=== PATIENT | female | born 1950 | race Caucasian/White ===

== ENCOUNTER 2019-11-01 06:40 | Observation (INO) | payer OTHER, SELFPAY ==
[2019-11-01] VITALS (11 sets, daily range): BP systolic 150–192; BP diastolic 82–117; PULSE 68–88; RESP 12–16; TEMP 34.4–36.6; O2SAT 96–100; BMI 51.3
--- NOTE | ~2019-11-01 | MR_ITS ---
EXAMINATION: MRA brain wo con DATE: 11/04/2019 09:04 INDICATION: Left-sided hearing loss. Dizziness. TECHNIQUE: Magnetic resonance angiography (MRA) of the brain was performed without intravenous contra st with T1-weighted SPGR by the 3D [id number] technique. Maximum intensity projection 3D-reconstr uctions were obtained. COMPARISON: Head CT 11/02/2019 FINDINGS: Motion artifact is noted. Right vertebral artery is dominant. There is no significant stenosis of bas ilar artery or the posterior cerebral arteries. There is no significant stenosis of the intracranial internal carotid arteries or anterior or middle cerebral arteries. Anterior communicating artery is n ormal. The posterior communicating arteries are normal. There is no aneurysm. IMPRESSION: 1. No aneurysm or significant intracranial arterial stenosis. Reviewed, dictated and finalized at location A.
--- NOTE | ~2019-11-01 | CT_ITS ---
EXAMINATION: CT abdomen pelvis w con DATE: 11/01/2019 09:28 INDICATION: Nausea and vomiting. Back pain for 3 days. Shortness of breath. TECHNIQUE: Computed tomography (CT) of the abdomen and pelvis was performed with 100 cc Omnipaque 350 intravenous contrast. Automated exposure control and iterative reconstruction technique were employe d. Exam dose: 1704.81 mGy-cm total exam DLP. COMPARISON: None. FINDINGS: There is minimal dependent right lower lobe atelectasis. The included lower lung zones are otherwise clear. Cardiomegaly. No pericardial or pleural effusion. Small sliding hiatal hernia. Status post cholecystectomy. The liver, spleen, pancreas, and adrenal glands are unremarkable. Bilate ral renal scarring, right greater than left, consistent with chronic pyelonephritis. There are occasi onal focal areas of diminished enhancement of the kidneys which may be due to scarring, infarction or acute pyelonephritis. There is no perinephric stranding or fluid. Clinical correlation is advised wi th urinalysis. No urinary tract calculus or hydroureteronephrosis. There is abdominal aortic calcification but no aneurysm. No intraperitoneal or retroperitoneal or pel marichuy mass lesion or adenopathy or ascites is detected. The urinary bladder is unremarkable. Status post hysterectomy. Minimal colonic diverticulosis; no CT evidence of diverticulitis. No bowel obstruction or intraperito mary jane free air. There is depression of the superior vertebral endplate of L3 and to a lesser extent L4 consistent wit h compression fractures of uncertain age. There is degenerative disc disease throughout the lumbar sp ine and degenerative spurring of the thoracic spine. No suspicious osteolytic or osteoblastic lesions are noted. There is degenerative change at the apophyseal joints with slight associated grade 1 ante rolisthesis at L4-5. IMPRESSION: Cardiomegaly Small sliding hiatal hernia Status post cholecystectomy Status post hysterectomy Bilateral chronic pyelonephritis; recommend clinical correlation/urinalysis to exclude superimposed a cute pyelonephritis Minimal colonic diverticulosis Compression fracture deformities of L3 and L4 Reviewed, dictated and finalized at Location A. Reviewed, dictated and finalized at location A. IMPRESSION: Cardiomegaly Small sliding hiatal hernia Status post cholecystectomy Status post hysterectomy Bilateral chronic pyelonephritis; recommend clinical correlation/urinalysis to exclude superimposed acute pyelonephritis Minimal colonic diverticulosis Compression fracture deformities of L3 and L4
--- NOTE | ~2019-11-01 | XR_ITS ---
EXAMINATION: XR chest 2V DATE: 11/03/2019 14:23 INDICATION: Shortness of breath TECHNIQUE: AP and lateral views of the chest are obtained. COMPARISON: 04/27/2017 FINDINGS: There are minimal airspace opacities of the right middle lobe. There is no pleural effusion or pneumothorax. The cardiomediastinal silhouette is normal for technique. There is mild thoracic sp ondylosis. Moderate osteoarthritis is noted in the shoulders. IMPRESSION: 1. Right middle lobe airspace opacity, likely pneumonia. Reviewed, dictated and finalized at location A.
--- NOTE | ~2019-11-01 | MR_ITS ---
EXAMINATION: MR brain/brain stem wo/w con DATE: 11/04/2019 09:04 INDICATION: Left-sided hearing loss. Dizziness. TECHNIQUE: Magnetic resonance imaging (MRI) of the brain and brainstem was performed without and with 20 mL MultiHance intravenous contrast. Sequences included sagittal and axial T1-weighted FSE, axial diffusion-weighted FS EPI, axial T1-weighted SPGR, axial T2*-weighted GRE, axial T2-weighted FLAIR Pr opeller, and axial T2-weighted Propeller. Postcontrast sequences included axial and coronal T1-weight ed FSE. Apparent diffusion coefficient (ADC) maps were created. COMPARISON: Head CT 11/02/2019 FINDINGS: There are scattered areas of nonspecific increased T2-weighted signal intensity in the cere bral white matter, which is within normal limits for the patient's age. There is no intracranial hemo rrhage, acute infarction, or abnormal intracranial mass lesion. The ventricles are normal in size. Th e mastoid air cells are normal. The paranasal sinuses are clear. There are likely changes of ocular l ens replacement surgeries. IMPRESSION: 1. Normal aging brain. Reviewed, dictated and finalized at location A. IMPRESSION: 1. Normal aging brain.
--- NOTE | ~2019-11-01 | CT_ITS ---
EXAMINATION: CT brain wo con EXAM DATE: 11/02/2019 17:13 INDICATION: Dizziness. TECHNIQUE: Spiral CT of the head was performed without contrast. Axial, coronal and sagittal images were reviewed. The dose-length product (DLP) for this examination was 605.33 mGy-cm. The exposure w as tailored according to patient size, and iterative reconstruction (ASIR) was used as additional dos e reduction technique. Comparison is made to prior examination from 10/09/2003. FINDINGS: There is no acute intraparenchymal hemorrhage. No evidence of intraparenchymal brain mass lesion. No evidence of acute infarction. There is no mass effect or midline shift. The ventricles are normal in size. There are no extra-axial collections. There are no acute calvarial fractures. P albert has had bilateral ocular lens surgery. Hyperostosis frontalis. Soft tissue is unremarkable. T he visualized sinuses and mastoid air cells are well aerated. IMPRESSION: 1. No acute intracranial findings. Reviewed, dictated and finalized at location A.
--- NOTE | ~2019-11-01 | XR_ITS ---
XR lumbar spine 2-3V DATE: 11/01/2019 09:38 INDICATION: Low back pain TECHNIQUE: AP, lateral, coned lateral lumbosacral views COMPARISON: 09/03/2018 CT abdomen 11/11/2019 CT abdomen pelvis 02/19/2018 lumbar spine FINDINGS: There is contrast material within the collecting systems of both kidneys and ureters, with moderate distention blunting of the calyces, but no apparent urinary tract obstruction. Normal alignment of the lumbar spine. Degenerative spurring of the included lower thoracic and lumbar spine, with multilevel degenerative disc disease, relatively sparing only L5-S1. No fracture or bone destruction is evident. The included lower thoracic and lumbar pedicles appear in tact. The sacroiliac joints are normal. IMPRESSION: Multilevel degenerative disc disease of the lumbar spine Reviewed, dictated and finalized at location A.
--- NOTE | 2019-11-01 07:03 | ED.ABDPAIN ---
HPI - Abdominal Pain General Chief Complaint: Abdominal Pain Stated Complaint: sob/vomiting Time Seen by Provider: 11/01/19 07:02 History of Present Illness HPI narrative: Patient presents via EMS with her daughter for vomiting nausea and shortness of breath. This started 2 days ago, and has been getting worse. She has a history of congestive heart failure COPD, and pneumonia. She was recently hospitalized at [facility]. She says she has pain only when she vomits, but her daughter said that she has had low back pain for 3 days. The PCP called in Flexeril and tramadol for the low back pain, which is not helping. The patient said her medications are in her purse, as we await the med list. Surgeries she has had gallbladder and hysterectomy. She has a history of A. fib with cardiac ablation. Onset (ago): day(s) Pain Consistency: intermittent Severity: mild Exacerbating factors: vomiting Related Data Patient : No Home Medications Medication Instructions Recorded Confirmed amiodarone 200 mg PO DAILY 11/01/19 apixaban [Eliquis] 5 mg PO BID 11/01/19 duloxetine 60 mg PO DAILY 11/01/19 furosemide 40 mg PO DAILY 11/01/19 gabapentin 600 mg PO QID 11/01/19 lisinopril 20 mg PO DAILY 11/01/19 metoprolol succinate 25 mg PO DAILY 11/01/19 omeprazole 40 mg PO DAILY 11/01/19 potassium chloride 20 meq PO DAILY 11/01/19 Allergies Allergy/AdvReac Type Severity Reaction Status Date / Time No Known Allergies Allergy Verified 11/01/19 07:32 Review of Systems Review of Systems: Narrative: CONSTITUTIONAL: Denies fever, she has had chills and sweats. EYES: Denies visual changes, redness, or discharge. ENT: Denies rhinorrhea, congestion, sore throat, or otalgia. CARDIOVASCULAR: Denies chest pain, palpitations, or edema. RESPIRATORY: Denies cough , She has chronic shortness of breath due to COPD GASTROINTESTINAL: She has nausea and vomiting GENITOURINARY: Denies dysuria or hematuria. SKIN: Denies rash or itching. MUSCULOSKELETAL: Denies joint pain, or myalgia. NEUROLOGIC: Denies headache, numbness, or weakness. PSYCHIATRIC: Denies anxiety or depression. All systems reviewed & are unremarkable except as noted in HPI and below PMFSH Past Medical History Medical History (Updated 11/01/19 @ 10:38 by Pat Iqbal MD) A-fib CHF (congestive heart failure) Surgical History Surgical History (Updated 11/01/19 @ 07:20 by Pat Iqbal MD) History of cholecystectomy History of hysterectomy Social History Social History (Updated 11/01/19 @ 07:21 by Pat Iqbal MD) Smoking status: Former smoker Alcohol intake: never Substance use: never Exam Narrative: Exam Narrative: GENERAL: Morbid obesity, active vomiting, flushed HEAD: Normocephalic, atraumatic.Double chin. EYES: PERRLA and EOMI. ENT: Nares clear, no rhinorrhea or epistaxis. Mucous membranes moist. NECK: Supple. CHEST: Clear to auscultation. No respiratory distress. HEART: Regular rate and rhythm. No murmur heard. Normal peripheral pulses. ABDOMEN: Soft, nontender, nondistended, normal active bowel sounds. EXTREMITIES: Normal range of motion. Peripheral edema. SKIN: Warm, dry, no rash. NEURO: No focal deficits. Alert and oriented x3. PSYCH: Keeps her eyes closed and speaks in single words. Const: General: ill appearing Nutritional Appearance: obese Course Reevaluation(s) Reevaluation #1: MDM the patient is still nauseated, and she has had Ultram before without this nausea and vomiting. I will add an another antiemetic. Date: 11/01/19 Time: 07:59 Reevaluation #2: Went in to give the results to the patient and her daughter. The daughter is a nurse who used to work here. I explained about the antibiotics for possible kidney infection. The 2 compression fractures, and the cardiomegaly. Do not have a good explanation for the vomiting. Could be the Ultram, or kidney infection. Will admit for overnight observation and pain management. Date:
--- NOTE | 2019-11-01 07:06 | ECG_ITS ---
Measurements Intervals [place] Rate: 73 P: 52 PA: 179 QRS: 17 QRSD: 97 T: 56 QT: 463 QTc: 510 Interpretive Statements SINUS RHYTHM PROLONGED QT INTERVAL ABNORMAL ECG Electronically Signed On 11-01-2019 8:46:36 CDT by Martin Lechuga D.O.
[2019-11-01] MEDS: ONDANSETRON INJ 4 MG/2 ML VIAL IV PUSH ×3 (07:25→21:52)
[2019-11-01] MEDS: FAMOTIDINE 20 MG/2 ML VIAL IV PUSH ×2 (07:27→21:52)
[2019-11-01] MEDS: FUROSEMIDE INJ 40 MG/4 ML VIAL IV PUSH (07:29)
[2019-11-01 07:30] LABS: Basophils Absolute Auto 0.1 K/mm3 (0.0-0.1); Basophils Percent Auto 0.7 % (0.2-1.2); Eosinophils Absolute Auto 0.3 K/mm3 (0-0.3); Eosinophils Percent Auto 2.2 % (0-4.4); Hematocrit 46.4 % (37.0-47.0); Hemoglobin 14.6 g/dL (12.0-15.0); Immature Granulocyte Absolute 0.05 K/mm3 (0.00-0.031); Immature Granulocyte Percent A 0.4 % (0-0.5); Lymphocytes Absolute Auto 1.94 K/mm3 (0.9-3.2); Lymphocytes Percent Auto 16.6 % (18.3-44.2); Mean Corpuscular HGB Conc 31.5 g/dl (32-36); Mean Corpuscular Hemoglobin 27.7 pg (26-34); Mean Corpuscular Volume 87.9 fl (80-100); Mean Platelet Volume 10.7 fl (7.4-10.4); Monocytes Absolute Auto 0.7 K/mm3 (0.1-0.6); Monocytes Percent Auto 5.9 % (2.6-8.5); Neutrophils Absolute Auto 8.6 K/mm3 (1.3-6.7); Neutrophils Percent Auto 74.2 % (45.5-73.1); Platelet Count Result 258 k/mm3 (150-375); Red Blood Count 5.28 M/mm3 (4.2-5.4); White Blood Count 11.7 K/mm3 (4.5-10.0)
[2019-11-01 07:42] LABS: Alanine Aminotransferase 15 U/L (4-35); Albumin Level 4.3 g/dL (3.5-5.1); Alkaline Phosphatase 158 U/L (38-126); Aspartate Amino Transferase 22 U/L (14-36); Blood Urea Nitrogen 17 mg/dL (7-17); Calcium 9.2 mg/dL (8.4-10.2); Carbon Dioxide 30 mmol/L (22-30); Chloride 101 mmol/L (98-107); Estimated CRCL calculation 89 ml/min; Estimated Glomerular Filt Rate > 60; Glucose 185 mg/dL (65-105); INR 1.2; Lipase 35 U/L (23-300); Potassium 3.7 mmol/L (3.4-5.0); Prothrombin Time 14.6 Seconds (11.1-14.7); Sodium 138 mmol/L (137-145)
[2019-11-01 07:43] LABS: Partial Thromboplastin Time 28.1 SECONDS (22.3-36.8)
[2019-11-01 07:53] LABS: Troponin I < 0.012 ng/mL (0.000-0.034)
[2019-11-01 07:56] LABS: NT Pro B Type Natriuretic Pept 282 PG/ML (5-100)
[2019-11-01 07:57] LABS: Alveolar/Arterial O2 Gradient 63.6 mmHg; Base Excess ABG 3.3 mEq/l (+/-2.0); Fractional Inspired Oxygen 36 %; HCO3 ABG 29.1 mEq/l (22.0-26.0); Oxygen Saturation ABG 98.7 % (95.0-100.0); Oxyhemoglobin 96.8 % THb (90.0-100.0); PCO2 ABG 48.8 mmHg (35.0-45.0); PO2 ABG 136.5 mmHg (80.0-100.0); PO2 FiO2 Ratio Arterial Blood 3.79 %; Total Hemoglobin 15.3 g/dL (12.0-18.0); pH ABG 7.394 (7.350-7.450)
[2019-11-01 07:59] LABS: Device NASAL CANNULA; Modified Allen's Test Pass; Site Drawn LEFT RADIAL
[2019-11-01] MEDS: METOCLOPRAMIDE HCL INJ 10 MG/2 ML VIAL IV PUSH (08:00)
[2019-11-01 08:30] LABS: Add Urine Microscopic? YES; Appearance Urine Clear (Clear); Bilirubin Urine Negative (Negative); Blood Urine Negative (Negative); Color Urine Colorless (Yellow); Glucose Urine UA 1+ mg/dL (Negative); Ketones Urine Negative (Negative); Leukocyte Esterase Ur Negative LEU/UL (Negative); Nitrate Urine Negative (Negative); Protein Urine 2+ mg/dL (Negative); RBC Urine 0-2 /hpf (0-2); Specific Grav Ur 1.009 (1.001-1.035); Squamous Epithelial Cell Urine Rare /hpf (Few); Urobilinogen Urine Negative mg/dL (<2.0); WBC Urine 0-3 /hpf
[2019-11-01] MEDS: METOPROLOL TARTRATE INJ 5 MG/5 ML VIAL IV PUSH (10:52)
--- NOTE | 2019-11-01 11:30 | ADMGEN ---
This patient, Carolee Guajardo, was admitted to Medical Room 349-01. Patient/family oriented to hospital policies and general routines including ID bracelet, bed and alarms, visiting hours, pain management, procedures, bathroom and other care routines, personal items, smoking policy, room service/diet, and visiting hours. Valuables list has been completed. Information on how to activate the Rapid Response Team has been discussed. Patient/Family are encouraged to report perceived risks to care and to ask questions if they do not understand what they are told or what they should do.
[2019-11-01] MEDS: hydrALAZINE HCL 20 MG/ML VIAL 10 MG IV PUSH (14:27)
[2019-11-01] MEDS: PROCHLORPERAZINE EDISYLATE 10 MG/2 ML VIAL IV PUSH (14:41)
[2019-11-01] MEDS: LORAZEPAM INJ 2 MG/ML VIAL 0.5 MG IV PUSH (14:42)
--- NOTE | 2019-11-01 15:36 | PM.IMHP ---
H&P: HPI History of Present Illness Chief complaint: Hypertensive crisis,uti,lumbar compression fractur Narrative: Carolee Guajardo is a 69 year old female The patient has a history of having congestive heart failure. And she also has a history of atrial fibrillation of which she had at least 3 ablation for. She had been out of atrial fibrillation for a long time back in July she would back into it and is now sinus rhythm today. 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 The patient was hospitalized back in July at [facility] for atrial fibrillation. The patient is currently in sinus rhythm. Patient has been having nausea and vomiting for at least 3 days she has also been short of breath. The last 2 days have been getting worse for her. The patient has been complaining of some back pain for at least 3 days and call the primary care doctor. She was prescribed Flexeril and Tylenol her lower back pain but it was not helping. Her blood pressure is 166/117 today. Patient was given Pepcid, Lasix, Reglan, Zofran, metoprolol, and Rocephin for pyelonephritis. date of service 11/01/2019 Review of Systems Review of Systems: ROS unobtainable: Yes unobtainable due to mental status Constitutional: Constitutional: Reports as per HPI and Reports no additional constitutional complaints Eyes: Eyes: Reports as per HPI and Reports no additional eye complaints ENT: Reports system reviewed and no additional complaints, except as documented and Reports Normal hearing present Cardiovascular: Cardiovascular: Reports no additional cardiovascular complaints Respiratory: Respiratory: Reports no additional respiratory complaints and Reports no additional respiratory complaints Gastrointestinal: Gastrointestinal: Reports as per HPI and Reports no additional gastrointestinal complaints Musculoskeletal: Musculoskeletal: Reports no additional musculoskeletal complaints Integumentary/Breasts: Skin/Breast: Reports system reviewed and no additional complaints, except as docu and Reports as per HPI Neurologic: Reports system reviewed and no additional complaints, except as documented, Reports as per HPI and Reports Normal hearing present Psychiatric: Psychiatric: Reports no additional psychiatric complaints and Reports as per HPI Endocrine: Endocrine: Reports no additional endocrine complaints Hematologic/Lymphatic: Hematologic/Lymphatic: Reports no additional hematologic/lymphatic complaints Allergic/Immunologic: Allergic/Immunologic: Reports no additional allergic/immunologic complaints PMFSH Past Medical History Medical History (Updated 11/01/19 @ 16:10 by Amy Carranza NP) A-fib paroxysmal CHF (congestive heart failure) DVT (deep venous thrombosis) Factor V Leiden Hypertension Surgical History Surgical History (Updated 11/01/19 @ 16:10 by Amy Carranza NP) H/O cardiac radiofrequency ablation H/O cataract extraction bilaterally History of appendectomy History of arthroplasty of right knee x3 History of cholecystectomy History of hysterectomy Family History Family History (Updated 11/01/19 @ 12:52 by Lucero Valdez RN) Mother Cerebrovascular accident Hypertension Father Acute myocardial infarction Chronic obstructive pulmonary disease Congestive heart failure Hypertension Social History Social History (Updated 11/01/19 @ 16:14 by Amy Carranza NP) Social History: patient is a former smoker. She smoked 2 packs of cigarettes a day for approximately 33 years. She quit smoking 16 years ago. She used to be a daily drinker and admits to drinking excessively by quit 1980s. No illicit drugs. 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 She has been 4 times and she lost her 1st and 3rd . She is for approximately 39 years now. She is a full code. She has 3 biological children and 2 stepchildren. Her daughter is a
[2019-11-01] MEDS: GABAPENTIN 300 MG CAPSULE 600 MG PO ×2 (17:33→21:52)
[2019-11-01] MEDS: APIXABAN 5 MG TABLET PO (17:33)
[2019-11-01] MEDS: TOLNAFTATE 1% POWDER 45 GM BTL 1 APPLIC TOPICAL (21:53)
[2019-11-02] VITALS (13 sets, daily range): BP systolic 125–138; BP diastolic 65–85; PULSE 72–93; RESP 16–18; TEMP 36.3–36.4; O2SAT 92–99
[2019-11-02] MEDS: ONDANSETRON INJ 4 MG/2 ML VIAL IV PUSH ×2 (02:00→06:20)
[2019-11-02 05:24] LABS: Basophils Percent Auto 0.2 % (0.2-1.2); Eosinophils Percent Auto 0.1 % (0-4.4); Hematocrit 46.3 % (37.0-47.0); Hemoglobin 14.4 g/dL (12.0-15.0); Immature Granulocyte Absolute 0.08 K/mm3 (0.00-0.031); Immature Granulocyte Percent A 0.5 % (0-0.5); Lymphocytes Absolute Auto 1.03 K/mm3 (0.9-3.2); Lymphocytes Percent Auto 6.4 % (18.3-44.2); Mean Corpuscular HGB Conc 31.1 g/dl (32-36); Mean Corpuscular Hemoglobin 27.9 pg (26-34); Mean Corpuscular Volume 89.6 fl (80-100); Mean Platelet Volume 11.3 fl (7.4-10.4); Monocytes Percent Auto 6.1 % (2.6-8.5); Neutrophils Absolute Auto 13.9 K/mm3 (1.3-6.7); Neutrophils Percent Auto 86.7 % (45.5-73.1); Platelet Count Result 296 k/mm3 (150-375); Red Blood Count 5.17 M/mm3 (4.2-5.4); Red Cell Distribution Width 15.1 % (11.5-14.5); White Blood Count 16.1 K/mm3 (4.5-10.0)
[2019-11-02 05:32] LABS: Hemoglobin A1C 5.9 % (<5.7)
[2019-11-02 05:39] LABS: Alanine Aminotransferase 16 U/L (4-35); Albumin Level 4.3 g/dL (3.5-5.1); Alkaline Phosphatase 125 U/L (38-126); Aspartate Amino Transferase 34 U/L (14-36); Blood Urea Nitrogen 21 mg/dL (7-17); Calcium 9.2 mg/dL (8.4-10.2); Carbon Dioxide 34 mmol/L (22-30); Chloride 98 mmol/L (98-107); Estimated CRCL calculation 85 ml/min; Estimated Glomerular Filt Rate > 60; Glucose 130 mg/dL (65-105); Potassium 3.7 mmol/L (3.4-5.0); Sodium 141 mmol/L (137-145)
[2019-11-02] MEDS: ACETAMINOPHEN 325 MG TABLET 650 MG PO (06:21)
[2019-11-02] MEDS: APIXABAN 5 MG TABLET PO ×2 (08:16→17:25)
[2019-11-02] MEDS: GABAPENTIN 300 MG CAPSULE 600 MG PO ×4 (08:17→20:00)
[2019-11-02] MEDS: FUROSEMIDE 40 MG TABLET PO (08:17)
[2019-11-02] MEDS: FAMOTIDINE 20 MG/2 ML VIAL IV PUSH ×2 (08:17→20:00)
[2019-11-02] MEDS: METOPROLOL SUCCINATE EXT REL 25 MG TABCR PO (08:18)
[2019-11-02] MEDS: DULOXETINE 60 MG CAPSULE.DR PO (08:18)
[2019-11-02] MEDS: AMIODARONE HCL 200 MG TABLET PO (08:18)
[2019-11-02] MEDS: lisinopriL 20 MG TABLET PO (08:18)
[2019-11-02] MEDS: POTASSIUM CHLORIDE 20 MEQ TABLET.ER PO (08:19)
[2019-11-02] MEDS: TOLNAFTATE 1% POWDER 45 GM BTL 1 APPLIC TOPICAL ×2 (08:19→20:02)
--- NOTE | 2019-11-02 11:34 | PM.IMPN ---
Progress Note: A&P Assessment and Plan (1) Chronic pyelonephritis: Code(s): N11.9 - Chronic tubulo-interstitial nephritis, unspecified Status: Acute Assessment and Plan: Possibly Acute on Chronic with CT results of possible acute on chronic pyelonephritis. UA unremarkable. Patient is on Rocephin from the ER for empiric therapy for possible acute on chronic pyelonephritis. UC pending; 1 of 2 BC negative to date. The patient has been complaining of some lower back pain last 3 days. She has also been having some nausea and vomiting for the previous several days and . CT of her abdomen only offered a diagnosis of acute on chronic pyelonephritis. Patient has been having lower back pain for past several days prior to arrival; also having N/V. Possibly etiology for symptoms. Patient also seems to have n/v when changing positions and loss of hearing in her left ear; possibly vertigo vs less likely labyrinthitis and stroke Will continue to IV Rocephin for now Await UC and tailor antibiotics to results Monitor closely Start meclizine TID as well to see if this will help with dizziness and subsequent N/V (2) Closed compression fracture of lumbar vertebra: Qualifiers: Encounter type: initial encounter Lumbar vertebra fracture level: L4 Qualified Code(s): S32.040A - Wedge compression fracture of fourth lumbar vertebra, initial encounter for closed fracture Code(s): S32.000A - Wedge compression fracture of unspecified lumbar vertebra, initial encounter for closed fracture Status: Acute Assessment and Plan: Most likely this is chronic. Continue home Cymbalta, gabapentin and Flexeril Monitor PT/OT (3) Hypertension: Code(s): I10 - Essential (primary) hypertension Status: Chronic Assessment and Plan: BP is improved this morning at 130s sys. Possibly due to pain Continue home lasix, lisinopril, and metoprolol for now Continue p.r.n. hydralazine Monitor fluid status and BP closely (4) COPD (chronic obstructive pulmonary disease): Qualifiers: COPD type: unspecified COPD Qualified Code(s): J44.9 - Chronic obstructive pulmonary disease, unspecified Code(s): J44.9 - Chronic obstructive pulmonary disease, unspecified Status: Acute Assessment and Plan: Reported COPD in the ER; not listed in her history; significant smoking history. Patient is now on RA; Lung exam unremarkable. No apparent home COPD medications Continue P.r.n. inhaler for now (5) CHF (congestive heart failure): Code(s): I50.9 - Heart failure, unspecified Status: Chronic Assessment and Plan: Patient is now breathing well on RA with unremarkable lung exam. She seems to be well compensated. She states she sees Dr. Malcolm from [facility] and has an appointment in the near future Will hold on Echo for now as patient is on RA; will consider re-ordering if change in respiratory status Continue home medications Monitor fluid status (6) A-fib: Code(s): I48.91 - Unspecified atrial fibrillation Status: Chronic Assessment and Plan: RR, sinus rhythm. She has had several ablation in the past. In July she was in atrial fibrillation but is now in sinus rhythm. Continue with Eliquis amiodarone and metoprolol. (7) Elevated blood sugar: Code(s): R73.9 - Hyperglycemia, unspecified Status: Acute Assessment and Plan: A1c is 5.9. No history of diabetes. BGL 130 this morning Discussed healthy lifestyle changes including weight loss and healthier diet Will consult field crew chief for tomorrow (8) Leukocytosis: Code(s): D72.829 - Elevated white blood cell count, unspecified
--- NOTE | 2019-11-02 12:22 | PCOTNOTE ---
OT evaluation attempted. Patient with continued nausea and vomiting. Unable to participate in therapy at this time. Will attempt OT evaluation at later time
[2019-11-02] MEDS: MECLIZINE HCL 12.5 MG TABLET PO ×3 (12:44→20:00)
[2019-11-03] VITALS (14 sets, daily range): BP systolic 124–151; BP diastolic 59–88; PULSE 67–80; RESP 14–18; TEMP 36.2–36.4; O2SAT 93–100; BMI 51.3
--- NOTE | 2019-11-03 | ECHO_ITS ---
Patient Info Name: Carolee Guajardo Age: 69 years : 1950 Gender: Female Ht: 65 in Wt: 308 lbs BSA: 2.62 m2 HR: 80 bpm BP: 151 / 88 mmHg Heart Rhythm: Sinus Rhythm Technical Quality: Poor Exam Date: 11/03/2019 11:24 AM Exam Location: [facility] Patient Status: Outpatient Admit Date: 11/01/2019 Staff Ordering Physician: Braden Shaffer PA-C Land Sales Agent: Stephanie Ardon RDCS Attending Provider: Braden Shaffer PA-C Referring Physician: Edmund THOMAS; Exam Type: CA echo doppler color flow Study Info Indications - hypoxia R60.9 - Edema, unspecified R06.09 - Other forms of dyspnea Complete two-dimensional, color flow and Doppler transthoracic echocardiogram is performed. Reason for Poor Study: patient body habitus Summary 1. Left ventricular chamber dimension is normal. 2. Left ventricular systolic function is normal, estimated at 55-60%. 3. There is mild concentric increased left ventricular wall thickness. 4. There is mild aortic valve sclerosis. 5. The patient in sinus rhythm at the time of the examination. Left Ventricle Left ventricular chamber dimension is normal. Left ventricular systolic function is normal, estimated at 55-60%. There is mild concentric increased left ventricular wall thickness. The left ventricular diastolic function is normal. Right Ventricle Right ventricular chamber dimension is normal. Left Atria Left atrial chamber dimension is mildly enlarged. Right Atria Right atrial chamber dimension is normal. Aortic Valve The aortic valve is trileaflet. There is mild aortic valve sclerosis. Pulmonic Valve The pulmonic valve is not well visualized. Mitral Valve The mitral valve has normal leaflets. There is trace mitral valve regurgitation. Tricuspid Valve The tricuspid valve leaflets are not well visualized. Pericardium/Pleural The pericardium appears normal. Aorta The aortic root size at the sinus of Valsalva is normal. Left Ventricular Outflow Tract Name Value Normal LVOT 2D LVOT Diameter 1.9 cm LVOT Doppler LVOT Peak Gradient 4 mmHg LVOT Mean Gradient 2 mmHg LVOT VTI 20 cm LVOT VTI/AV VTI Ratio 0.8 LVOT Stroke Volume 57 ml LVOT CO 4.1 l/min LVOT CI 1.6 l/min/m2 Pulmonic Valve Name Value Normal RVOT Doppler RVOT Peak Gradient 2 mmHg PV Doppler PV Peak Gradient 4 mmHg Mitral Valve Name Value Normal
[2019-11-03] MEDS: ACETAMINOPHEN 325 MG TABLET 650 MG PO ×3 (02:52→20:19)
[2019-11-03 05:37] LABS: Basophils Absolute Auto 0.1 K/mm3 (0.0-0.1); Basophils Percent Auto 0.9 % (0.2-1.2); Eosinophils Absolute Auto 0.1 K/mm3 (0-0.3); Eosinophils Percent Auto 1.1 % (0-4.4); Hematocrit 46.5 % (37.0-47.0); Hemoglobin 14.3 g/dL (12.0-15.0); Immature Granulocyte Absolute 0.05 K/mm3 (0.00-0.031); Immature Granulocyte Percent A 0.5 % (0-0.5); Lymphocytes Absolute Auto 1.56 K/mm3 (0.9-3.2); Lymphocytes Percent Auto 14.9 % (18.3-44.2); Mean Corpuscular HGB Conc 30.8 g/dl (32-36); Mean Corpuscular Hemoglobin 27.8 pg (26-34); Mean Corpuscular Volume 90.5 fl (80-100); Mean Platelet Volume 10.7 fl (7.4-10.4); Monocytes Absolute Auto 0.8 K/mm3 (0.1-0.6); Monocytes Percent Auto 7.2 % (2.6-8.5); Neutrophils Absolute Auto 7.9 K/mm3 (1.3-6.7); Neutrophils Percent Auto 75.4 % (45.5-73.1); Platelet Count Result 290 k/mm3 (150-375); Red Blood Count 5.14 M/mm3 (4.2-5.4); White Blood Count 10.5 K/mm3 (4.5-10.0)
[2019-11-03 05:50] LABS: Alanine Aminotransferase 20 U/L (4-35); Albumin Level 4.1 g/dL (3.5-5.1); Alkaline Phosphatase 118 U/L (38-126); Aspartate Amino Transferase 40 U/L (14-36); Bilirubin,Total 0.9 mg/dL (0.2-1.3); Blood Urea Nitrogen 26 mg/dL (7-17); Calcium 9.3 mg/dL (8.4-10.2); Carbon Dioxide 37 mmol/L (22-30); Chloride 99 mmol/L (98-107); Estimated CRCL calculation 76 ml/min; Estimated Glomerular Filt Rate > 60; Glucose 112 mg/dL (65-105); Magnesium 2.1 mg/dL (1.6-2.3); Potassium 3.9 mmol/L (3.4-5.0); Sodium 143 mmol/L (137-145)
[2019-11-03] MEDS: lisinopriL 20 MG TABLET PO (09:14)
[2019-11-03] MEDS: POTASSIUM CHLORIDE 20 MEQ TABLET.ER PO (09:14)
[2019-11-03] MEDS: FAMOTIDINE 20 MG/2 ML VIAL IV PUSH ×2 (09:14→20:19)
[2019-11-03] MEDS: FUROSEMIDE 40 MG TABLET PO (09:15)
[2019-11-03] MEDS: DULOXETINE 60 MG CAPSULE.DR PO (09:15)
[2019-11-03] MEDS: METOPROLOL SUCCINATE EXT REL 25 MG TABCR PO (09:15)
[2019-11-03] MEDS: AMIODARONE HCL 200 MG TABLET PO (09:16)
[2019-11-03] MEDS: APIXABAN 5 MG TABLET PO ×2 (09:16→16:34)
[2019-11-03] MEDS: MECLIZINE HCL 12.5 MG TABLET PO ×4 (09:17→20:19)
[2019-11-03] MEDS: GABAPENTIN 300 MG CAPSULE 600 MG PO ×4 (09:17→20:19)
[2019-11-03] MEDS: TOLNAFTATE 1% POWDER 45 GM BTL 1 APPLIC TOPICAL ×2 (09:18→20:20)
--- NOTE | 2019-11-03 11:07 | PM.IMPN ---
Progress Note: A&P Assessment and Plan (1) Chronic pyelonephritis: Code(s): N11.9 - Chronic tubulo-interstitial nephritis, unspecified Status: Acute Assessment and Plan: Possibly Acute on Chronic with CT results of possible acute on chronic pyelonephritis, although suspicion fairly low at this point. UA unremarkable. Patient is on Rocephin from the ER for empiric therapy for possible acute on chronic pyelonephritis. UC pending still; BC negative to date x 2. The patient has been complaining of some lower back pain last 3 days. She has also been having some nausea and vomiting for the previous several days and actually presented to the ER due to severe SOB and daughter feared it may be related to her paroxysmal a. fib. CT of her abdomen only offered a diagnosis of acute on chronic pyelonephritis for etiology of symptoms of n/v and lower back pain although this is likely due to her lumbar compression fracture; denies any recent trauam/falls. Ct of head yesterday showed no acute intracranial findings. Symptoms seemingly persistent today with also a migraine headache today. Will continue to IV Rocephin for now Await UC and tailor antibiotics to results vs discontinuation of antibiotics if UC negative Monitor closely Continue meclizine TID as patient reports some relief Out of bed for meals if tolerated (2) CHF (congestive heart failure): Code(s): I50.9 - Heart failure, unspecified Status: Chronic Assessment and Plan: Patient is on 2L O2 today with unremarkable lung exam. Apparently, patient was only on RA for a short period of time yesterday then placed back on O2. According to daughter, she had similar symptoms back in June at [facility] in [place] and was sent home with O2 with ambulation; this was discontinued by her primary as she was no longer short of breath. She seems to be well compensated otherwise. Awaiting Echo and CXR to be done. 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; an appointment is apparently set up for her Methods Analyst Data Processing later this month Will do Echo today as she is requiring 2L O2; Will hold on any additional diuretics at this moment; await CXR results Continue home medications Monitor fluid status (3) COPD (chronic obstructive pulmonary disease): Qualifiers: COPD type: unspecified COPD Qualified Code(s): J44.9 - Chronic obstructive pulmonary disease, unspecified Code(s): J44.9 - Chronic obstructive pulmonary disease, unspecified Status: Acute Assessment and Plan: Reported COPD in the ER; not listed in her history; significant smoking history. Patient is on 2L O2; Lung exam unremarkable. No apparent home COPD medications Continue P.r.n. inhaler for now (4) Acute respiratory failure with hypoxia: Code(s): J96.01 - Acute respiratory failure with hypoxia Status: Acute Assessment and Plan: acute vs chronic as patient apparently sent home with oxygen several months ago. Possibly worsening COPD. Possible component of CHF playing a role. Viral vs bacterial PNA less likely; no wheezing noted on exam - COPD exacerbation less likely as well. Appears possibly more chronic in nature. Resting comfortable on 2L O2 currently. Will obtain Echo and CXR today Consider further diuretics if warranted on CXR She will likely need another Home O2 eval prior to discharge She will be following up with her Methods Analyst Data Processing later this month in regards to her CHF, per daughter Monitor Wean O2 as tolerated Out of bed as tolerated (5) Closed compression fracture of lumbar vertebra: Qualifiers: Encounter type: initial encounter Lumbar vertebra fracture level: L4 Qualified Code(s): S32.040A - Wedge compression fracture of fourth lumbar vertebra, initial encounter for closed
[2019-11-03] MEDS: ACETAMINOPHEN/ASPIRIN/CAFFEINE 250-250-65 MG TABLET 1 TABLET PO (12:22)
--- NOTE | 2019-11-03 15:28 | PCOTNOTE ---
OT evaluation attempted. Patient declined stating she is too nauseated to participate at this time. Patient states she will try to participate tomorrow. Will continue to attempt.
[2019-11-04] VITALS (11 sets, daily range): BP systolic 131–155; BP diastolic 75–86; PULSE 65–84; RESP 16–18; TEMP 35.7–36.1; O2SAT 89–98
[2019-11-04 05:16] LABS: Basophils Absolute Auto 0.1 K/mm3 (0.0-0.1); Basophils Percent Auto 0.9 % (0.2-1.2); Eosinophils Absolute Auto 0.2 K/mm3 (0-0.3); Eosinophils Percent Auto 2.1 % (0-4.4); Hematocrit 47.6 % (37.0-47.0); Hemoglobin 14.3 g/dL (12.0-15.0); Immature Granulocyte Absolute 0.03 K/mm3 (0.00-0.031); Immature Granulocyte Percent A 0.3 % (0-0.5); Lymphocytes Absolute Auto 1.76 K/mm3 (0.9-3.2); Lymphocytes Percent Auto 16.7 % (18.3-44.2); Mean Corpuscular Hemoglobin 27.9 pg (26-34); Mean Platelet Volume 10.9 fl (7.4-10.4); Monocytes Percent Auto 9.8 % (2.6-8.5); Neutrophils Absolute Auto 7.4 K/mm3 (1.3-6.7); Neutrophils Percent Auto 70.2 % (45.5-73.1); Platelet Count Result 286 k/mm3 (150-375); Red Blood Count 5.12 M/mm3 (4.2-5.4); White Blood Count 10.6 K/mm3 (4.5-10.0)
[2019-11-04] MEDS: ONDANSETRON INJ 4 MG/2 ML VIAL IV PUSH ×2 (05:23→11:00)
[2019-11-04 05:47] LABS: Alanine Aminotransferase 19 U/L (4-35); Albumin Level 3.8 g/dL (3.5-5.1); Alkaline Phosphatase 106 U/L (38-126); Aspartate Amino Transferase 30 U/L (14-36); Bilirubin,Total 0.8 mg/dL (0.2-1.3); Blood Urea Nitrogen 31 mg/dL (7-17); Carbon Dioxide > 40 mmol/L (22-30); Chloride 98 mmol/L (98-107); Estimated CRCL calculation 69 ml/min; Estimated Glomerular Filt Rate 55; Glucose 111 mg/dL (65-105); Potassium 3.8 mmol/L (3.4-5.0); Sodium 142 mmol/L (137-145)
--- NOTE | 2019-11-04 09:05 | PC.NURSE ---
Pt left the floor for MRI at 08 and returned 905. Bed alarm in place, call light in reach.
[2019-11-04] MEDS: FUROSEMIDE 40 MG TABLET PO (09:12)
[2019-11-04] MEDS: DULOXETINE 60 MG CAPSULE.DR PO (09:12)
[2019-11-04] MEDS: MECLIZINE HCL 12.5 MG TABLET PO (09:12)
[2019-11-04] MEDS: APIXABAN 5 MG TABLET PO ×2 (09:13→16:48)
[2019-11-04] MEDS: METOPROLOL SUCCINATE EXT REL 25 MG TABCR PO (09:13)
[2019-11-04] MEDS: AMIODARONE HCL 200 MG TABLET PO (09:13)
[2019-11-04] MEDS: POTASSIUM CHLORIDE 20 MEQ TABLET.ER PO (09:13)
[2019-11-04] MEDS: lisinopriL 20 MG TABLET PO (09:13)
[2019-11-04] MEDS: GABAPENTIN 300 MG CAPSULE 600 MG PO ×4 (09:13→20:25)
[2019-11-04] MEDS: FAMOTIDINE 20 MG/2 ML VIAL IV PUSH ×2 (09:14→20:25)
[2019-11-04] MEDS: TOLNAFTATE 1% POWDER 45 GM BTL 1 APPLIC TOPICAL ×2 (09:15→20:25)
--- NOTE | 2019-11-04 12:57 | PM.IMPN ---
Progress Note: A&P Assessment and Plan (1) Community acquired pneumonia: Code(s): J18.9 - Pneumonia, unspecified organism Status: Acute Assessment and Plan: Patient was found to be hypoxic and chest x-ray was completed showing right middle lobe pneumonia. She was continued on IV ceftriaxone antibiotics she denies any fever, chills shortness of breath or coughing at this time. She is now resting comfortably on room air without any issues. Patient's vital signs are stable at this time and leukocytosis is improving. Continue monitoring. (2) Leukocytosis: Code(s): D72.829 - Elevated white blood cell count, unspecified Status: Acute Assessment and Plan: This was discussed with the daughter and stated that her mother's white count is always elevated has had this evaluated in the past and has not had a definitive diagnosis. Patient's leukocytosis was 10.6k today and her daughter states this is lower than her normal. She apparently follows a Heme-Onc physician for this; no clear diagnosis at this moment. Possibly related to CT findings of possible pyelonephritis vs other source of infection. Monitor daily Continue antibiotics for now. (3) Meniere disease: Code(s): H81.09 - Meniere's disease, unspecified ear Status: Acute Assessment and Plan: Patient reports symptoms vertigo, left hearing loss, loss of balance with some leaning to the left side when walking and feeling of echoing to her left ear. She denies similar symptoms in the past. We did do an MRI and MRA to rule out any acoustic neuroma or ischemia. MRI and MRA show normal aging brain and no aneurysm or significant intracranial arterial stenosis. She was taking meclizine q.i.d. 12.5 mg without much relief. I will increase this to 25 mg q.i.d.. Will consider Valium 2.5 mg daily if she continues have dizziness without any improvement. On a low-sodium diet which is recommended for many years. Will give antinausea meds as needed. She will need to follow-up with her primary care provider and see what is recommended and follow-up meds in further hearing testing or rehabilitation. Will continue monitoring her symptoms at this time. (4) Chronic pyelonephritis: Code(s): N11.9 - Chronic tubulo-interstitial nephritis, unspecified Status: Acute Assessment and Plan: Possibly Acute on Chronic with CT results of possible acute on chronic pyelonephritis, although suspicion fairly low at this point. CT of her abdomen only offered a diagnosis of acute on chronic pyelonephritis for etiology of symptoms of n/v and lower back pain although this is likely due to her lumbar compression fracture; denies any recent trauma/falls. CT of head showed no acute intracranial findings. Will continue to IV Rocephin for now for pneumonia and chronic pyelonephitis UC negative at this time. Monitor closely (5) Acute respiratory failure with hypoxia: Code(s): J96.01 - Acute respiratory failure with hypoxia Status: Acute Assessment and Plan: acute vs chronic as patient apparently sent home with oxygen several months ago. Possibly worsening COPD. Possible component of CHF playing a role. Viral vs bacterial PNA. Chest x-ray showed right middle lobe pneumonia. She was continued on ceftriaxone antibiotics. She is now on room air without any shortness of breath or coughing noted. Will continue monitoring her oxygenation and at oxygen if necessary. 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 Buchanan as her stone breaker per the daughter; an appointment is apparently set up for her Visual Merchandise Manager later this month Echocardiog
[2019-11-04] MEDS: MECLIZINE HCL 25 MG TABLET PO ×3 (13:39→20:25)
[2019-11-04] MEDS: ACETAMINOPHEN/ASPIRIN/CAFFEINE 250-250-65 MG TABLET 1 TABLET PO (13:40)
[2019-11-04 13:55] LABS: CRP 0.8 mg/dL (<1.0); Erythrocyte Sedimentation Rate 20 mm/hr (0-20)
[2019-11-05] VITALS (10 sets, daily range): BP systolic 124–130; BP diastolic 61–74; PULSE 77–95; RESP 18; TEMP 36.1; O2SAT 91–98
[2019-11-05] MEDS: ACETAMINOPHEN 325 MG TABLET 650 MG PO ×2 (04:26→10:07)
[2019-11-05 05:31] LABS: Basophils Absolute Auto 0.1 K/mm3 (0.0-0.1); Basophils Percent Auto 1.1 % (0.2-1.2); Eosinophils Absolute Auto 0.3 K/mm3 (0-0.3); Eosinophils Percent Auto 2.8 % (0-4.4); Hematocrit 47.4 % (37.0-47.0); Hemoglobin 14.4 g/dL (12.0-15.0); Immature Granulocyte Absolute 0.03 K/mm3 (0.00-0.031); Immature Granulocyte Percent A 0.3 % (0-0.5); Lymphocytes Absolute Auto 1.54 K/mm3 (0.9-3.2); Lymphocytes Percent Auto 17.2 % (18.3-44.2); Mean Corpuscular HGB Conc 30.4 g/dl (32-36); Mean Corpuscular Hemoglobin 27.9 pg (26-34); Mean Corpuscular Volume 91.7 fl (80-100); Mean Platelet Volume 11.4 fl (7.4-10.4); Monocytes Absolute Auto 0.8 K/mm3 (0.1-0.6); Neutrophils Absolute Auto 6.2 K/mm3 (1.3-6.7); Neutrophils Percent Auto 69.6 % (45.5-73.1); Platelet Count Result 273 k/mm3 (150-375); Red Blood Count 5.17 M/mm3 (4.2-5.4); Red Cell Distribution Width 14.9 % (11.5-14.5)
[2019-11-05 05:35] LABS: Blood Urea Nitrogen 27 mg/dL (7-17); Calcium 8.9 mg/dL (8.4-10.2); Carbon Dioxide > 40 mmol/L (22-30); Chloride 95 mmol/L (98-107); Estimated CRCL calculation 76 ml/min; Estimated Glomerular Filt Rate > 60; Glucose 108 mg/dL (65-105); Magnesium 1.9 mg/dL (1.6-2.3); Potassium 3.6 mmol/L (3.4-5.0); Sodium 138 mmol/L (137-145)
[2019-11-05] MEDS: FAMOTIDINE 20 MG/2 ML VIAL IV PUSH (08:58)
[2019-11-05] MEDS: METOPROLOL SUCCINATE EXT REL 25 MG TABCR PO (08:59)
[2019-11-05] MEDS: GABAPENTIN 300 MG CAPSULE 600 MG PO ×3 (08:59→16:57)
[2019-11-05] MEDS: APIXABAN 5 MG TABLET PO ×2 (09:00→16:57)
[2019-11-05] MEDS: AMIODARONE HCL 200 MG TABLET PO (09:00)
[2019-11-05] MEDS: DULOXETINE 60 MG CAPSULE.DR PO (09:01)
[2019-11-05] MEDS: MECLIZINE HCL 25 MG TABLET PO ×2 (09:01→16:56)
[2019-11-05] MEDS: lisinopriL 20 MG TABLET PO (09:01)
[2019-11-05] MEDS: TOLNAFTATE 1% POWDER 45 GM BTL 1 APPLIC TOPICAL (09:03)
[2019-11-05] MEDS: DIAZEPAM 2 MG TABLET 1 MG PO (12:36)
--- NOTE | 2019-11-05 13:20 | PM.DS ---
DS: Diagnosis Admitting Diagnosis Admitting Diagnosis: Chronic tubulo-interstitial nephritis, unspecified Discharge Diagnosis (1) Community acquired pneumonia: Code(s): J18.9 - Pneumonia, unspecified organism Status: Acute Assessment and Plan: Patient was found to be hypoxic and chest x-ray was completed showing right middle lobe pneumonia. She was continued on IV ceftriaxone antibiotics she denies any fever, chills shortness of breath or coughing at this time. She is now resting comfortably on room air without any issues. (2) Leukocytosis: Code(s): D72.829 - Elevated white blood cell count, unspecified Status: Acute Assessment and Plan: This was discussed with the daughter and stated that her mother's white count is always elevated has had this evaluated in the past and has not had a definitive diagnosis. Patient's leukocytosis normalized at 9000 today. She apparently follows a Heme-Onc physician for his leukocytosis; no clear diagnosis at this moment. Possibly related to CT findings of possible pyelonephritis vs other source of infection. Will discharge on oral cefdinir to complete treatment upon discharge. (3) Meniere disease: Code(s): H81.09 - Meniere's disease, unspecified ear Status: Acute Assessment and Plan: Patient reports symptoms vertigo, left hearing loss, loss of balance with some leaning to the left side when walking and feeling of echoing to her left ear. She denies similar symptoms in the past. We did do an MRI and MRA to rule out any acoustic neuroma or ischemia. MRI and MRA show normal aging brain and no aneurysm or significant intracranial arterial stenosis. Increased meclizine q.i.d. 12.5 mg to 25 mg, with relief for only about 2 hours out of the 6 hours. I placed her on Valium 1 mg to see if this would help with her dizziness and nausea. Will discharge with Valium once daily and meclizine p.r.n. q.i.d. for breakthrough dizziness. On a low-sodium diet which is recommended for many years. Will give antinausea meds as needed. She will need to follow-up with her primary care provider and see what is recommended and follow-up meds in further hearing testing or rehabilitation. (4) Chronic pyelonephritis: Code(s): N11.9 - Chronic tubulo-interstitial nephritis, unspecified Status: Acute Assessment and Plan: Possibly Acute on Chronic with CT results of possible acute on chronic pyelonephritis, although suspicion fairly low at this point. CT of her abdomen only offered a diagnosis of acute on chronic pyelonephritis for etiology of symptoms of n/v and lower back pain although this is likely due to her lumbar compression fracture; denies any recent trauma/falls. CT of head showed no acute intracranial findings. Continue oral cefdinir. UC negative at this time (5) Acute respiratory failure with hypoxia: Code(s): J96.01 - Acute respiratory failure with hypoxia Status: Acute Assessment and Plan: acute vs chronic as patient apparently sent home with oxygen several months ago. Possibly worsening COPD. Possible component of CHF playing a role. Viral vs bacterial PNA. Chest x-ray showed right middle lobe pneumonia. She was continued on ceftriaxone antibiotics. She is now on room air without any shortness of breath or coughing noted. Will continue cefdinir. (6) CHF (congestive heart failure): Code(s): I50.9 - Heart failure, unspecified Status: Chronic Assessment and Plan: Chronic Diastolic. 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 Left ventricular sy
--- NOTE | 2019-11-05 14:01 | PCRCNOTE ---
HOME O2 EVAL DONE, PT DID NOT WANT TO AMBULATE FOR FEAR OF FALLING, STATES SHE HAS SEVERE DIZZINESS, LIGHTHEADED. SATS USING EAR PROBE ARE 96-98% ON ROOM AIR AT REST. PT STATES SHE IS GOING TO REHAB, NOT HOME.
--- NOTE | 2019-11-12 09:48 | PC.NURSE ---
Blood cx are negative
== END 2019-11-05 18:00 | disposition swing bed (61) ==
LOC: ANHED 10:22 → ANH3MED 12:57
PROVIDERS: Nurse Practitioner; Physician Assistant; Admitting Provider Family Medicine; Emergency Provider Emergency Medicine; PCP Family Medicine Adolescent Medicine; Visit Provider Physician Assistant
DX: J18.9 Pneumonia, unspecified organism (principal); J44.0 Chronic obstructive pulmonary disease with (acute) lower respiratory infection; J96.01 Acute respiratory failure with hypoxia; D72.829 Elevated white blood cell count, unspecified; H81.09 Meniere's disease, unspecified ear; N11.9 Chronic tubulo-interstitial nephritis, unspecified; I11.0 Hypertensive heart disease with heart failure; I50.32 Chronic diastolic (congestive) heart failure; I35.8 Other nonrheumatic aortic valve disorders; R42 Dizziness and giddiness; S32.040A Wedge compression fracture of fourth lumbar vertebra, initial encounter for closed fracture; I48.91 Unspecified atrial fibrillation; R73.9 Hyperglycemia, unspecified; B37.2 Candidiasis of skin and nail; D68.51 Activated protein C resistance; Z79.01 Long term (current) use of anticoagulants; Z79.899 Other long term (current) drug therapy; Z86.718 Personal history of other venous thrombosis and embolism; Z87.891 Personal history of nicotine dependence
CPT/HCPCS: 36415; 36600; 51701; 70450; 70544; 70553; 71046; 72100; 74177; 80048; 80053; 81001; 82805; 83036; 83690; 83735; 83880; 84443; 84484; 85025; 85610; 85652; 85730; 86140; 87040; 87086; 93005; 93306; 94618; 96365; 96366; 96375; 96376; 97110; 97116; 97162; 97165; 97535; 99285; A9270; A9577; G0378; J0360; J0696; J0780; J1940; J2060; J2405; J2765; Q9967

== ENCOUNTER → 2021-04-06 10:58 | Outpatient (CLI) | payer OTHER, SELFPAY ==
--- NOTE | ~2021-04-06 | XR_ITS ---
XR hip RT min 2V DATE: 04/06/2021 11:43 INDICATION: Right hip pain TECHNIQUE: AP and lateral views COMPARISON: None FINDINGS: No fracture, dislocation, avascular necrosis or bone destruction of the right hip is eviden t. Right hip joint space appears relatively preserved. IMPRESSION: No significant abnormality of the right hip Reviewed, dictated and finalized at location B.
--- NOTE | ~2021-04-06 | XR_ITS ---
XR knee LT min 4V DATE: 04/06/2021 11:43 INDICATION: Right knee pain TECHNIQUE: [place] and standing AP, PA and lateral views COMPARISON: None FINDINGS: There is tricompartment osteoarthritis, most severe at the patellofemoral and especially me dial compartments. There is [id number] at the medial compartment. No fracture or dislocation or joint effusion, periosteal reaction or bone destruction, radiopaque int ra-articular loose body or chondrocalcinosis. 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 IMPRESSION: Tricompartment osteoarthritis, particularly severe at the medial co mpartment
--- NOTE | ~2021-04-06 | XR_ITS ---
XR knee RT min 4V DATE: 04/06/2021 11:43 INDICATION: Right knee pain TECHNIQUE: [place] and standing AP and lateral views COMPARISON: 07/08/2012 right knee FINDINGS: Status post right total knee arthroplasty with patellar resurfacing. There is diffuse osteopenia. No fracture or dislocation or joint effusion, periosteal reaction or bone destruction is evident. IMPRESSION: Status post right total knee arthroplasty Osteopenia Reviewed, dictated and finalized at location B.
== END ==
PROVIDERS: PCP Family Medicine Adolescent Medicine; Visit Provider Physician Assistant
DX: M17.12 Unilateral primary osteoarthritis, left knee (principal); M85.861 Other specified disorders of bone density and structure, right lower leg; Z96.651 Presence of right artificial knee joint
CPT/HCPCS: 73502; 73564

== ENCOUNTER → 2022-05-12 11:45 | Outpatient (CLI) | payer OTHER, SELFPAY ==
--- NOTE | ~2022-05-12 | XR_ITS ---
XR lumbar spine 2-3V DATE: 05/12/2022 12:01 INDICATION: Low back pain, bilateral leg pain for one month. No injury. TECHNIQUE: AP, lateral, coned lateral lumbosacral views COMPARISON: 11/01/2019 lumbar spine FINDINGS: Multilevel degenerative disc disease, moderate to moderately severe at L1-2, severe at L2-3 , moderate at L3-4 and severe at L4-5. L5-S1 interspace appears well preserved. No fracture or bone destruction. The lumbar pedicles are intact. The sacroiliac joints appear normal. IMPRESSION: Multilevel degenerative disc disease Reviewed, dictated and finalized at location B. ETITIVE INTELLIGENCE MANAGER
== END ==
PROVIDERS: PCP Family Medicine Adolescent Medicine; Visit Provider Family Medicine Adolescent Medicine
DX: M54.30 Sciatica, unspecified side (principal); M54.50 Low back pain, unspecified; M51.36 Other intervertebral disc degeneration, lumbar region
CPT/HCPCS: 72100

== ENCOUNTER 2022-10-14 11:41 | Emergency (ER) | payer OTHER, SELFPAY ==
[2022-10-14 12:09] VITALS: BP 165/93; PULSE 82; RESP 18; TEMP 36.8; O2SAT 92
[2022-10-14 12:11] VITALS: BP 165/93; PULSE 82; RESP 18; TEMP 36.8; O2SAT 92
--- NOTE | 2022-10-14 12:30 | ED.GENADULT ---
HPI - General Adult General Chief complaint: Ear Stated complaint: Bilateral Ear Irritation Time Seen by Provider: 10/14/22 12:30 Source: patient Mode of arrival: ambulatory Limitations: no limitations History of Present Illness HPI narrative: 9-year-old female patient presents to the [facility] with complaints of acute hearing loss to the right ear. Patient states she was watching TV yesterday and thought something was wrong with the TV and started turning it up and realized that she cannot hear out of her right ear. Patient already has lost hearing to the left ear from what her ENT told her was a your stroke. Patient states she does follow with an ENT specialist for her ear. Patient denies any or tingling or weakness on 1 side of the body or the other. Denies any slurred speech or slow thinking. Related Data Home Medications Medication Instructions Recorded Confirmed metoprolol succinate 25 mg 25 mg PO DAILY 11/01/19 10/14/22 tablet,extended release 24 hr amlodipine 2.5 mg tablet 2.5 mg PO DAILY 01/04/22 10/14/22 flaxseed oil 1,000 mg capsule 1,000 mg PO DAILY 01/04/22 10/14/22 glucosamine-chondroitin 250 mg-200 2 tablet PO ONCE 01/04/22 10/14/22 mg tablet (Osteo Bi-Flex) lisinopril 20 mg tablet 40 mg PO DAILY 01/04/22 10/14/22 potassium chloride 20 mEq 20 meq PO DAILY 01/04/22 10/14/22 tablet,extended release(part/cryst) (Klor-Con M) amiodarone 200 mg tablet 200 mg PO DAILY 01/24/22 10/14/22 aspirin 81 mg tablet,delayed 81 mg PO DAILY 01/24/22 10/14/22 release (Adult Aspirin Regimen) Allergies Allergy/AdvReac Type Severity Reaction Status Date / Time aspirin AdvReac Intermediate Nausea Verified 10/14/22 11:58 levofloxacin [From Levaquin] AdvReac Intermediate Nausea Verified 10/14/22 11:58 Review of Systems Review of Systems: CONSTITUTIONAL: Denies fever, chills, or sweats. EYES: Denies visual changes, redness, or discharge. ENT: Denies rhinorrhea, congestion, sore throat, or otalgia. Acute hearing loss right ear CARDIOVASCULAR: Denies chest pain, palpitations, or edema. RESPIRATORY: Denies cough or dyspnea. GASTROINTESTINAL: Denies abdominal pain, nausea, vomiting, or diarrhea. GENITOURINARY: Denies dysuria or hematuria. SKIN: Denies rash or itching. MUSCULOSKELETAL: Denies back pain, joint pain, or myalgia. NEUROLOGIC: Denies headache, numbness, or weakness. PSYCHIATRIC: Denies anxiety or depression. [facility] Past Medical History Medical History A-fib paroxysmal DVT (deep venous thrombosis) Factor V Leiden Hx of deep venous thrombosis Hypertension Surgical History Surgical History H/O cardiac radiofrequency ablation H/O cataract extraction bilaterally History of appendectomy (~1968) History of arthroplasty of right knee x3 History of carpal tunnel release (1999) History of cholecystectomy (1976) History of meniscectomy of left knee (~2013) History of partial hysterectomy (~1976) History of total right knee replacement Family History Family History Mother Cerebrovascular accident Hypertension Emphysema lung Father Acute myocardial infarction Chronic obstructive pulmonary disease Congestive heart failure Hypertension Heart disease Renal failure Social History Social History Social History: patient is a former smoker. She smoked 2 packs of cigarettes a day for approximately 33 years. She quit smoking 16 years ago. She used to be a daily drinker and admits to drinking excessively by quit . No illicit drugs. 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 She has been 4 times and she lost her 1st and 3rd . She is for approximately 39 years now. She is a full code. She has 3 biological children and 2 stepchildren.
== END 2022-10-14 12:42 | disposition home or self-care (01) ==
PROVIDERS: Emergency Provider Nurse Practitioner Family; PCP Family Medicine Adolescent Medicine
DX: H91.91 Unspecified hearing loss, right ear (principal); Z87.891 Personal history of nicotine dependence; I48.0 Paroxysmal atrial fibrillation; I10 Essential (primary) hypertension; D68.51 Activated protein C resistance; Z86.718 Personal history of other venous thrombosis and embolism; Z98.42 Cataract extraction status, left eye; Z98.41 Cataract extraction status, right eye; Z96.651 Presence of right artificial knee joint; Z79.82 Long term (current) use of aspirin
CPT/HCPCS: 99211; G0463

== ENCOUNTER 2024-03-21 12:04 | Outpatient (CLI) | payer OTHER, SELFPAY ==
--- NOTE | ~2024-03-21 | XR_ITS ---
XR shoulder RT min 2V Ordering provider: Enrike Jett MD History: . M25.511 - Pain in right shoulder . Comparison: None. FINDINGS: BONES: No acute fracture or dislocation. Minimal anterior subluxation is not excluded. JOINT SPACES: The acromioclavicular joint is normal. The glenohumeral joint shows severe osteoarthrit ic changes. SOFT TISSUES: Normal. IMPRESSION: No acute osseous abnormality right shoulder. Minimal anterior subluxation is not excluded. Reviewed, dictated and finalized at location A.
--- NOTE | ~2024-03-21 | XR_ITS ---
XR shoulder LT min 2V Ordering provider: Enrike Jett MD History: . M25.511 - Pain in right shoulder . Comparison: None. FINDINGS: BONES: No acute fracture or dislocation. Degenerative changes in the area of the greater tuberosity. JOINT SPACES: The acromioclavicular joint is normal. The glenohumeral joint shows severe osteoarthrit ic changes. SOFT TISSUES: Normal. IMPRESSION: No acute osseous abnormality left shoulder. Reviewed, dictated and finalized at location A.
== END 2024-03-21 12:05 | disposition home or self-care (01) ==
LOC: MICIMG 12:05
PROVIDERS: PCP Family Medicine Adolescent Medicine; Visit Provider Family Medicine Adolescent Medicine
DX: M25.512 Pain in left shoulder (principal); M25.511 Pain in right shoulder
CPT/HCPCS: 73030

== ENCOUNTER → 2025-04-20 12:11 | Outpatient (CLI) | payer OTHER, SELFPAY ==
--- NOTE | ~2025-04-20 | XR_ITS ---
EXAMINATION: XR foot RT min 3V, 04/20/2025 12:25 CDT HISTORY: M79.671 - Pain in right foot COMPARISON: No comparisons available. Findings: There is a remote healed fracture of the shaft of the fourth metatarsal. No acute fracture or dislocation is identified. Moderate degenerative changes. Soft tissues unremarkable. Impression: No acute fracture or malalignment. Reviewed, dictated and finalized at location P. Impression: No acute fracture or malalignment.
== END ==
LOC: EXPCRAD 12:12
PROVIDERS: PCP Nurse Practitioner Family; Visit Provider Nurse Practitioner Family
DX: M79.671 Pain in right foot (principal)
CPT/HCPCS: 73630